=== PATIENT | female | born 1955 | race Caucasian/White ===

== ENCOUNTER 2017-12-21 06:55 | Day surgery (SDC) | payer BC ==
[~2017-12-21 06:55] MED LIST: Acetaminophen/HYDROcodone 325-5 MG Tab PO PRN; Lactated Ringers 1,000 ML IV SCH; Sodium Chloride 0.9% 10 ML Syringe FLUSH PRN; ceFAZolin 1 GM Vial ONE; ceFAZolin 1 GM in Sodium Chloride 0.9% 50 ML IV SCH
[2017-12-21] MEDS ORDERED: ceFAZolin 1 GM in Sodium Chloride 0.9% 50 ML IV SCH (07:42)
[2017-12-21] MEDS ORDERED: Lactated Ringers 1,000 ML IV SCH (07:45)
[2017-12-21] MEDS ORDERED: Propofol 200 MG/20 ML SDV ONE (09:40)
[2017-12-21] MEDS ORDERED: Morphine 10 MG/ML Syringe IVPUSH ONE (11:15)
[2017-12-21] MEDS ORDERED: Acetaminophen/HYDROcodone 325-10 MG Tab ONE (11:36)
[2017-12-21] MEDS ORDERED: Ketorolac 30 MG/ML SDV IVPUSH ONE (11:51)
--- NOTE | 2017-12-22 08:45 | OR ---
DATE OF OPERATION: 12/21/2017 PREOPERATIVE DIAGNOSIS: Advanced first carpometacarpal arthritis. POSTOPERATIVE DIAGNOSIS: Advanced first carpometacarpal arthritis. PROCEDURE: Right first carpometacarpal interpositional arthroplasty. ANESTHESIA: General. LICENSED PSYCHOLOGIST MANAGER: Jamil Julian RN. SPECIMENS: None. DRAINS: None. ESTIMATED BLOOD LOSS: Minimal. COMPLICATIONS: None apparent. DESCRIPTION OF PROCEDURE: After informed consent was obtained, the patient was brought to the operating room where general anesthetic was administered uneventfully. The right upper extremity was prepped and draped sterilely, a time-out was held, and antibiotics were confirmed. The incision was made over the first CMC joint at the junction of the glabrous and non-glabrous skin. We dissected sharply through the skin with careful scissor dissection through subcutaneous tissues to protect and preserve the superficial radial sensory nerve branches. The capsule overlying the trapezium was opened longitudinally and full-thickness flaps were established. We subperiosteally dissected around the trapezium, until we were able to expose it sufficiently to be able to perform a cruciate osteotomy. It was then removed piecemeal. We made a short transverse incision at the junction of the musculotendinous junction of the flexor carpi radialis, we then delivered it into the arthroplasty space. We used a 3-0 nylon to create an arthroplasty spacer balling the FCR. This was then placed into the arthroplasty space. We closed the capsule with 2-0 Vicryl over the top of this. We closed the skin with 4-0 nylon. Xeroform sterile dressings were applied as well as thumb spica splint. The patient was brought to the recovery room in stable condition, having tolerated the procedure well, with no apparent complications.. GERTRUDIS/SONIA /[id number]
== END 2017-12-21 14:05 | disposition home or self-care (01) ==
LOC: LB.SDS 06:55
PROVIDERS: ATTEND Orthopaedic Surgery
DX: M18.11 Unilateral primary osteoarthritis of first carpometacarpal joint, right hand (principal); M81.0 Age-related osteoporosis without current pathological fracture; J45.909 Unspecified asthma, uncomplicated; F32.9 Major depressive disorder, single episode, unspecified; E11.9 Type 2 diabetes mellitus without complications; K21.9 Gastro-esophageal reflux disease without esophagitis; E78.5 Hyperlipidemia, unspecified; I10 Essential (primary) hypertension; G47.00 Insomnia, unspecified; Z91.048 Other nonmedicinal substance allergy status; Z88.0 Allergy status to penicillin; Z79.899 Other long term (current) drug therapy; Z87.891 Personal history of nicotine dependence
CPT/HCPCS: 96374; J0690; J1885; J2270; J2704; J7050; J7120

== ENCOUNTER 2018-09-16 10:28 | Day surgery (SDC) | payer BC ==
[2018-09-16] MEDS: Sodium Chloride 0.9% 1,000 ML IV SCH (11:09)
[2018-09-16] MEDS ORDERED: Lidocaine 2% Viscous Solution 15 ML Cup ONE (12:15)
[2018-09-16] MEDS ORDERED: Propofol 1,000 MG/100 ML SDV ONE (12:15)
--- NOTE | 2018-09-16 19:34 | OR ---
DATE OF OPERATION: 09/16/2018 PREOPERATIVE DIAGNOSIS: Dysphagia. POSTOPERATIVE DIAGNOSIS: Dysphagia. PROCEDURE: Esophagogastroduodenoscopy with biopsy. ANESTHESIA: MAC. ESTIMATED BLOOD LOSS: Minimal. COMPLICATIONS: None. INDICATION FOR THE PROCEDURE: The patient is a 63-year-old female who for the past several years has had some difficulty with swallowing. She does feel like solids potentially and sometimes pills do get stuck in her chest. Does not have any trouble with liquids. She has been on ranitidine. She has not tried anything else. DESCRIPTION OF PROCEDURE: Informed consent was obtained from the patient. The patient was taken to the operating room and placed on table in left lateral decubitus position. Monitored anesthesia care was administered. Esophagogastroduodenoscope was then advanced through the mouth and directed towards the second portion of the duodenum. Duodenum was normal. No signs of duodenitis. No ulcers. Gastric antrum did appear to be normal. No gastritis. No ulcers. Cold forceps biopsy was taken of the gastric antrum and checked that for H. pylori. Retroflexion performed was also otherwise unremarkable. Esophagogastroduodenoscope was then withdrawn into the esophagus. Very minimal esophagitis possible, otherwise distal esophagus GE junction was normal. Remainder of the esophagus examined on the way out was also otherwise unremarkable. Esophagogastroduodenoscope was then withdrawn. The patient tolerated the procedure well and was brought to recovery room in good condition. FINDINGS: Possible mild esophagitis at the GE junction. RECOMMENDATIONS: We will follow up on H. pylori biopsies, otherwise would recommend starting PPI therapy for the next 2 months and monitoring her progress. If she continues to have signs and symptoms of dysphagia, I would recommend esophagram. BRADY/SONIA /[id number]
== END 2018-09-16 13:14 | disposition home or self-care (01) ==
LOC: LB.SDS 10:28
PROVIDERS: ATTEND Surgery
DX: R13.10 Dysphagia, unspecified (principal); I10 Essential (primary) hypertension; J45.909 Unspecified asthma, uncomplicated; K21.9 Gastro-esophageal reflux disease without esophagitis; Z79.899 Other long term (current) drug therapy
CPT/HCPCS: 88305; 88342; A9270-GY; J2704; J7030

== ENCOUNTER 2020-02-24 10:02 | Observation (INO) | payer MEDICARE, BC ==
--- NOTE | 2020-02-24 10:25 | EDM.PDOC ---
ED HPI GENERAL MEDICAL PROBLEM - General Chief Complaint: Lower Extremity Injury/Pain Stated Complaint: PAIN Time Seen by Provider: 02/24/20 10:15 Source of Information: Reports: Patient History Limitations: Reports: No Limitations - History of Present Illness INITIAL COMMENTS - FREE TEXT/NARRATIVE: pt presents to the ER with right knee pain mostly in the posterior fossa. pt is post R TKA on 13 February and has been doing PT since last week. over the last 3-4 days the pain has worsened with increased cramping in her right calf, this is also TTP. pt states she intermittently experiences dizzyness/lightheadedness with coinciding sweating. the cramping, dizzyness, lightheadedness and sweating increases with activity, improvement with rest. she denies fever, chills, nausea, cough, SOB, chest pain. pt provides family history of several relatives with DVT with sister dying of PE. pt admits to at least one missed dose of warfarin this week. pt was evaluated in the context of the covid 19 pandemic. - Related Data Allergies Allergy/AdvReac Type Severity Reaction Status Date / Time alcohol Allergy Rash Verified 08/16/18 09:16 Penicillins Allergy Hives Verified 08/16/18 09:16 Home Meds: Home Meds Amitriptyline [Elavil] 75 mg PO DAILY 12/13/17 [History] Cyclobenzaprine HCl 10 mg PO TID 12/13/17 [History] Fluticasone Propion/Salmeterol [Advair 250-50 Diskus] 2 inh INH BID 12/13/17 [History] Furosemide 40 mg PO ACDINNER 12/13/17 [History] Hydrocodone/Acetaminophen [Hydrocodon-Acetaminophen 5-325] 1 tab PO Q6HR PRN 12/13/17 [History] Ipratropium [Atrovent HFA] 2 inh INH QID PRN 12/13/17 [History] Ranitidine HCl [Ranitidine] 150 mg PO BID 12/13/17 [History] Simvastatin [Zocor] 20 mg PO DAILY 12/13/17 [History] Past Medical History HEENT History: Reports: Hard of Hearing, Other (See Below) Other HEENT History: wears hearing aid Cardiovascular History: Reports: High Cholesterol, Hypertension, Other (See Below) Other Cardiovascular History: Hyperlipidemia Respiratory History: Reports: Asthma Gastrointestinal History: Reports: GERD Other Gastrointestinal History: hx of esophageal ulcers 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: Musculoskeletal History: Reports: Osteoporosis, Other (See Below) Other Musculoskeletal History: degenerative joint disease Neurological History: Reports: Migraines, TIA Psychiatric History: Reports: Depression Endocrine/Metabolic History: Reports: Diabetes, Type II, Osteoporosis Oncologic (Cancer) History: Reports: Basal Cell Carcinoma, Ovarian - Infectious Disease History Infectious Disease History: Reports: Chicken Pox - Past Surgical History Musculoskeletal Surgical History: Reports: Carpal Tunnel Social & Family History - Family History Family Medical History: Noncontributory HEENT: Reports: Cataract, Sinusitis Cardiac: Reports: Hypertension Respiratory: Reports: PE : Reports: None Musculoskeletal: Reports: Arthritis, Back pain, Chronic, Osteoarthritis, Osteoporosis Neurological: Reports: Migraines Endocrine/Metabolic: Reports: Diabetes, type II Hematologic: Reports: None Immunologic: Reports: None Oncologic: Reports: Breast, Ovarian, Uterine, Other (See Below) Other Oncologic Family History: fallopian - Caffeine Use Caffeine Use: Reports: Coffee ED ROS GENERAL - Review of Systems Review Of Systems: Comprehensive ROS is negative, except as noted in HPI. ED EXAM, GENERAL - Physical Exam Exam: See Below Exam Limited By: No Limitations General Appearance: Alert, WD/WN, No Apparent Distress Eye Exam: Bilateral Eye: EOMI, PERRL Head: Atraumatic, Normocephalic Neck: Normal Inspection Respiratory/Chest: No Respiratory Distress, Lungs Clear, Normal Breath Sounds, No Accessory Muscle Use Cardiovascular: Normal Peripheral Pulses, Regular Rate, Rhythm, No JVD, No Murmur Peripheral Pulses: 2+: Radial (L), Radial (R), Dorsalis Pedis (L), Dorsalis Pedis (R) GI/Abdominal: Normal Bowel Sounds, Soft, Non-Tender Extremities: Other (R calf and posterior fossa of the knee are TTP on midline. bedside US shows compressible veins throughout fossa and lower leg structures.) Neurological: Alert, Oriented, CN II-XII Intact, Normal Cognition Psychiatric: Normal Affect, Normal Mood Skin Exam: Warm, Dry, Intact Lymphatic: No Adenopathy Course - Orders/Labs/Meds Orders: Active Orders 24 hr Category Date Time Status Chest 1V Frontal [CR] Stat Exams 02/24/20 10:09 Ordered CBC WITH AUTO DIFF [HEME] Stat Lab 02/24/20 10:09 Ordered COMPREHENSIVE METABOLIC PN,CMP [CHEM] Stat Lab 02/24/20 10:09 Ordered D-DIMER QUANTITATIVE [COAG] Stat Lab 02/24/20 10:09 Ordered PTT,PARTIAL THROMBOPLSTIN TIME [COAG] Stat Lab 02/24/20 10:10 Ordered - Radiology Interpretation Free Text/Narrative:: cxr shows no widened mediastinum, pneumothoracies, consolodation or infiltrates. no bony abnormalities. Departure - Departure Time of Disposition: 13:00 Disposition: Refer to Observation Condition: Fair Clinical Impression: DVT (deep venous thrombosis) - Discharge Information *PRESCRIPTION DRUG MONITORING PROGRAM REVIEWED*: Not Applicable *COPY OF PRESCRIPTION DRUG MONITORING REPORT IN PATIENT MARJORIE: Not Applicable Referrals: PCP,None [Primary Care Provider] - Forms: ED Department Discharge - Problem List & Annotations (1) DVT (deep venous thrombosis) SNOMED Code(s): 834090555 Code(s): I82.409 - ACUTE EMBOLISM AND THOMBOS UNSP DEEP VN UNSP LOWER EXTREMITY Status: Acute Current Visit: Yes - Problem List Review Problem List Initiated/Reviewed/Updated: Yes - My Orders Last 24 Hours: My Active Orders 02/24/20 10:09 Chest 1V Frontal [CR] Stat CBC WITH AUTO DIFF [HEME] Stat COMPREHENSIVE METABOLIC PN,CMP [CHEM] Stat D-DIMER QUANTITATIVE [COAG] Stat 02/24/20 10:10 PTT,PARTIAL THROMBOPLSTIN TIME [COAG] Stat - Assessment/Plan Last 24 Hours: My Active Orders 02/24/20 10:09 Chest 1V Frontal [CR] Stat CBC WITH AUTO DIFF [HEME] Stat COMPREHENSIVE METABOLIC PN,CMP [CHEM] Stat D-DIMER QUANTITATIVE [COAG] Stat 02/24/20 10:10 PTT,PARTIAL THROMBOPLSTIN TIME [COAG] Stat Assessment:: assessment: DVT plan: current INR of 1.1 after one week of coumadin continue coumadin and initiate heparin during observation stay for care and prevention of further DVT although not identified on bedside US, pt with likely DVT by clinical exam and Ddimer with TTP to calf and posterior fossa of right knee. will admit observation through Dr. Jessica of [facility].
[2020-02-24] MEDS: fentaNYL 100 MCG/2 ML SDV IVPUSH PRN ×2 (11:07→12:27)
[2020-02-24] MEDS ORDERED: fentaNYL 100 MCG/2 ML SDV IVPUSH PRN (12:16)
--- NOTE | 2020-02-24 14:12 | CR ---
DATE OF SERVICE: 02/24/20 CLINICAL DATA: Syncopal episode. AP CHEST: Comparison is made to a prior exam dated 05/29/14. The heart size is normal. There is calcification of the aortic arch. The lungs are clear. No pneumothorax. No pleural effusions. No evidence of acute intrathoracic disease. [id number] [facility]
--- NOTE | 2020-02-24 14:17 | CT ---
DATE OF SERVICE: 02/24/20 CLINICAL DATA: Elevated D-dimer. ENHANCED CHEST CT: Multislice axial acquisition with IV contrast was performed. No priors. No evidence of PE. No pneumothorax. No pleural effusions. No aortic aneurysm or dissection. There are minimal atelectatic changes in the dependent portion of both lungs. There are emphysematous changes throughout both lungs. There is a 7 mm pleural- based nodule in the right lower lobe posteromedially. The lung bases are otherwise clear. The heart size is normal. No pericardial effusion. No hilar or mediastinal adenopathy. There are multiple small calcified gallstones noted in the dependent gallbladder. No pericholecystic fluid. No other significant findings. IMPRESSION: 1. No acute abnormalities. 2. Cholelithiasis. No evidence of cholecystitis. 3. 7 mm pleural-based nodule right lower lobe. 3-[address] is recommended. [id number] MTDD
[2020-02-24] MEDS ORDERED: Ondansetron 4 MG/2 ML SDV IV PRN (14:21)
[2020-02-24] MEDS ORDERED: Polyethylene Glycol 3350 Powder 17 GM Packet PO PRN (14:21)
[2020-02-24] MEDS ORDERED: Acetaminophen 325 MG Tab PO PRN (14:21)
[2020-02-24] MEDS ORDERED: HYDROmorphone 4 MG/ML Syringe IVPUSH PRN (14:27)
--- NOTE | 2020-02-24 14:34 | PCM.HP.2 ---
H&P History of Present Illness - General Date of Service: 02/24/20 Admit Problem/Dx: Admission Diagnosis/Problem Admission Diagnosis/Problem DVT, Deep venous thrombosis Source of Information: Patient, Old Records, Provider, RN, RN Notes Reviewed History Limitations: Reports: No Limitations - History of Present Illness Initial Comments - Free Text/Narative: 64 yo woman s/p R TKA 10 days ago presented to ED with c/o severe knee pain. Pt ran out of her po toradol 3 days ago. Also had been prescribed Oxy-IR but had not been taking it due to severe upset stomach. Hydrocodone has worked in the past. Pain became so severe that she sought medical attention in the ED. Pt. denies redness or warmth to knee. It is somewhat swollen but not worse than usual. Has been prescribed coumadin for post op DVT ppx. Reportedly missed one dose but INR is 1.1 in spite of this. Pt does not recall length of time coumadin was prescribed. Notes FH of DVT/PE and sudden . Pt. had CT angio in ED that was negative for PE. US/ Doppler did not show any obvious clots but US for doppler only available once per week. Pt admitted for further eval and management. Onset of Symptoms: Reports: Gradual Symptom Onset Date: 02/21/20 Duration of Symptoms: Reports: Day(s):, Getting Worse Location: Reports: Lower Extremity, Right Quality: Reports: Sharp, Throbbing Severity: Severe Improves with: Reports: Immobilization, Medication Worsens with: Reports: Movement Context: Reports: Activity/Exercise, Exertion. Denies: Sick Contact Associated Symptoms: Reports: No Other Symptoms - Related Data Allergies/Adverse Reactions: Allergies Allergy/AdvReac Type Severity Reaction Status Date / Time alcohol Allergy Rash Verified 02/24/20 14:28 Penicillins Allergy Hives Verified 02/24/20 14:28 Home Medications: Home Meds Amitriptyline [Elavil] 75 mg PO DAILY 12/13/17 [History] Cyclobenzaprine HCl 10 mg PO TID 12/13/17 [History] Fluticasone Propion/Salmeterol [Advair 250-50 Diskus] 2 inh INH BID 12/13/17 [History] Furosemide 40 mg PO ACDINNER 12/13/17 [History] Hydrocodone/Acetaminophen [Hydrocodon-Acetaminophen 5-325] 1 tab PO Q6HR PRN 12/13/17 [History] Ipratropium [Atrovent HFA] 2 inh INH QID PRN 12/13/17 [History] Ranitidine HCl [Ranitidine] 150 mg PO BID 12/13/17 [History] Simvastatin [Zocor] 20 mg PO DAILY 12/13/17 [History] Past Medical History HEENT History: Reports: Hard of Hearing, Other (See Below) Other HEENT History: wears hearing aid Cardiovascular History: Reports: High Cholesterol, Hypertension, Other (See Below) Other Cardiovascular History: Hyperlipidemia Respiratory History: Reports: Asthma Gastrointestinal History: Reports: GERD Other Gastrointestinal History: hx of esophageal ulcers 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: Musculoskeletal History: Reports: Osteoporosis, Other (See Below) Other Musculoskeletal History: degenerative joint disease Neurological History: Reports: Migraines, TIA Psychiatric History: Reports: Depression Endocrine/Metabolic History: Reports: Diabetes, Type II, Osteoporosis Oncologic (Cancer) History: Reports: Basal Cell Carcinoma, Ovarian - Infectious Disease History Infectious Disease History: Reports: Chicken Pox - Past Surgical History Musculoskeletal Surgical History: Reports: Carpal Tunnel Social & Family History - Family History Family Medical History: Noncontributory HEENT: Reports: Cataract, Sinusitis Cardiac: Reports: Hypertension Respiratory: Reports: PE : Reports: None Musculoskeletal: Reports: Arthritis, Back pain, Chronic, Osteoarthritis, Osteoporosis Neurological: Reports: Migraines Endocrine/Metabolic: Reports: Diabetes, type II Hematologic: Reports: None Immunologic: Reports: None Oncologic: Reports: Breast, Ovarian, Uterine, Other (See Below) Other Oncologic Family History: fallopian - Tobacco Use Smoking Status *Q: Former Smoker Tobacco Use Within Last Twelve Months: Cigarettes - Caffeine Use Caffeine Use: Reports: Coffee - Alcohol Use Alcohol Use History: No - Living Situation & Occupation Living situation: Reports: , with Spouse H&P Review of Systems - Review of Systems: Review Of Systems: See Below General: Reports: No Symptoms HEENT: Reports: No Symptoms Pulmonary: Reports: No Symptoms. Denies: Shortness of Breath, Wheezing Cardiovascular: Reports: No Symptoms. Denies: Chest Pain, Palpitations, Dyspnea on Exertion Gastrointestinal: Reports: Diarrhea. Denies: Black Stool, Bloody Stool Psychiatric: Reports: No Symptoms Neurological: Reports: No Symptoms Hematologic/Lymphatic: Reports: No Symptoms Immunologic: Reports: No Symptoms Exam - Exam Exam: See Below - Vital Signs Vital Signs: See EMR - Exam General: Alert, Oriented, Cooperative HEENT: EOMI, Hearing Intact, Nares Patent, Posterior Pharynx Clear Neck: Trachea Midline Lungs: Clear to Auscultation, Normal Respiratory Effort. No: Rhonchi, Stridor, Wheezing Cardiovascular: Regular Rate, Regular Rhythm, Normal S1, Normal S2 Extremities: Other (trace edema bilaterally, intact dressing, no erythema over knee noted.) Neurological: Cranial Nerves Intact, Normal Speech, Normal Tone - Patient Data Lab Results Last 24 hrs: Laboratory Results - last 24 hr 02/24/20 02/24/20 02/24/20 Range/Units 10:30 10:30 10:30 WBC 7.5 (4.0-11.0) K/uL RBC 3.82 (3.80-5.80) M/uL Hgb 10.9 L (11.5-16.5) g/dL Hct 33.9 L (37.0-47.0) % MCV 89 (76-96) fL MCH 28.5 (27.0-32.0) pg MCHC 32.2 (31.0-35.0) g/dL RDW 14.1 (11.0-16.0) % Plt Count 474 D (150-500) K/uL MPV 9.0 (6.0-10.0) fL Neut % (Auto) 53.5 (45.0-70.0) % Lymph % (Auto) 26.0 (20.0-40.0) % Trigg % (Auto) 10.7 H (3.0-10.0) % Eos % (Auto) 9.1 H (1.0-5.0) % Baso % (Auto) 0.7 H (0.0-0.5) % Neut # (Auto) 3.99 (2.00-7.50) K/uL Lymph # (Auto) 1.94 (1.50-4.00) K/uL Trigg # (Auto) 0.80 (0.20-0.80) K/uL Eos # (Auto) 0.68 H (0.04-0.40) K/uL Baso # (Auto) 0.05 (0.02-0.10) K/uL APTT (24.4-33.2) SECONDS D-Dimer, Quantitative 4400 H (0-400) ng/mL Sodium 136 (136-145) mmol/L Potassium 3.8 (3.5-5.1) mmol/L Chloride 100 (98-107) mmol/L Carbon Dioxide 29.3 (21.0-32.0) mmol/L Anion Gap 10.5 (5.0-15.0) mmol/L BUN 19 D (8-26) mg/dL Creatinine 1.03 H D (0.55-1.02) mg/dL Est Cr Clr Drug Dosing TNP Estimated GFR (MDRD) 54 L (>60) MLS/MIN BUN/Creatinine Ratio 18.4 (6-25) Glucose 107 H (74-100) mg/dL Calcium 9.4 (8.5-10.1) mg/dL Total Bilirubin 0.4 D (0.0-1.0) mg/dL AST 23 (15-37) U/L ALT 28 (12-78) U/L Alkaline Phosphatase 79 (46-116) U/L Troponin I (0.000-0.060) ng/mL Total Protein 7.4 (6.4-8.2) g/dL Albumin 3.0 L (3.4-5.0) g/dL Globulin 4.4 H (2.2-4.2) g/dL Albumin/Globulin Ratio 0.7 L (0.8-2.0) 02/24/20 02/24/20 Range/Units 10:30 10:30 WBC (4.0-11.0) K/uL RBC (3.80-5.80) M/uL Hgb (11.5-16.5) g/dL Hct (37.0-47.0) % MCV (76-96) fL MCH (27.0-32.0) pg MCHC (31.0-35.0) g/dL RDW (11.0-16.0) % Plt Count (150-500) K/uL MPV (6.0-10.0) fL Neut % (Auto) (45.0-70.0) % Lymph % (Auto) (20.0-40.0) % Trigg % (Auto) (3.0-10.0) % Eos % (Auto) (1.0-5.0) % Baso % (Auto) (0.0-0.5) % Neut # (Auto) (2.00-7.50) K/uL Lymph # (Auto) (1.50-4.00) K/uL Trigg # (Auto) (0.20-0.80) K/uL Eos # (Auto) (0.04-0.40) K/uL Baso # (Auto) (0.02-0.10) K/uL APTT 29.9 (24.4-33.2) SECONDS D-Dimer, Quantitative (0-400) ng/mL Sodium (136-145) mmol/L Potassium (3.5-5.1) mmol/L Chloride (98-107) mmol/L Carbon Dioxide (21.0-32.0) mmol/L Anion Gap (5.0-15.0) mmol/L BUN (8-26) mg/dL Creatinine (0.55-1.02) mg/dL Est Cr Clr Drug Dosing Estimated GFR (MDRD) (>60) MLS/MIN BUN/Creatinine Ratio (6-25) Glucose (74-100) mg/dL Calcium (8.5-10.1) mg/dL Total Bilirubin (0.0-1.0) mg/dL AST (15-37) U/L ALT (12-78) U/L Alkaline Phosphatase (46-116) U/L Troponin I < 0.017 (0.000-0.060) ng/mL Total Protein (6.4-8.2) g/dL Albumin (3.4-5.0) g/dL Globulin (2.2-4.2) g/dL Albumin/Globulin Ratio (0.8-2.0) Result Diagrams: 02/24/20 10:30 02/24/20 10:30 Sepsis Event Note - Focused Exam Date Exam was Performed: 02/24/20 Time Exam was Performed: 14:29 - Problem List (1) S/P total knee arthroplasty SNOMED Code(s): 6699306149090, 647827747, 4502881621412 ICD Code: Z96.659 - PRESENCE OF UNSPECIFIED ARTIFICIAL KNEE JOINT Status: Acute Current Visit: Yes Qualifiers: Laterality: right Qualified Code(s): Z96.651 - Presence of right artificial knee joint (2) Pain SNOMED Code(s): 37093098 ICD Code: R52 - PAIN, UNSPECIFIED Status: Acute Priority: High Current Visit: Yes (3) Family history of DVT SNOMED Code(s): 053616087 ICD Code: Z82.49 - FAMILY HX OF ISCHEM HEART DIS AND OTH DIS OF THE CIRC SYS Status: Acute Priority: Medium Current Visit: Yes (4) Subtherapeutic international normalized ratio (INR) SNOMED Code(s): 094606301, 919588013 ICD Code: R79.1 - ABNORMAL COAGULATION PROFILE Status: Acute Priority: High Current Visit: Yes Problem List Initiated/Reviewed/Updated: Yes Orders Last 24hrs: Active Orders 24 hr Category Date Time Status Patient Status [ADT] Routine ADT 02/24/20 14:14 Active Ambulate [RC] ASDIRECTED Care 02/24/20 14:21 Active Anticoag Warfarin Education *Q [RC] DAILY Care 02/24/20 14:21 Active Blood Glucose Check, Bedside [RC] [facility] 02/24/20 14:21 Active Communication Order [RC] PER UNIT ROUTINE Care 02/24/20 14:21 Active Diabetes Education [RC] Click to Edit Care 02/24/20 14:25 Active Height and Weight [RC] DAILY Care 02/24/20 14:21 Active Intake and Output [RC] QSHIFT Care 02/24/20 14:22 Active May Shower [RC] ASDIRECTED Care 02/24/20 14:21 Active Notify Provider [RC] PRN Care 02/24/20 14:24 Active Oxygen Therapy [RC] PRN Care 02/24/20 14:14 Active Oxygen Therapy [RC] PRN Care 02/24/20 14:22 Active Oxygen Therapy [RC] PRN Care 02/24/20 14:22 Active Up ad Zarina [RC] ASDIRECTED Care 02/24/20 14:21 Active VTE/DVT Education [RC] PER UNIT ROUTINE Care 02/24/20 14:22 Active VTE/DVT Education [RC] Per Unit Routine Care 02/24/20 14:14 Active VTE/DVT Education [RC] Per Unit Routine Care 02/24/20 14:22 Active Vital Signs [RC] Q4H Care 02/24/20 14:14 Active Vital Signs [RC] Q4H Care 02/24/20 14:22 Active Consult to Case Management/Streetcar Operator [CONS] Cons 02/24/20 14:21 Active Routine OT Evaluation and Treatment [CONS] Routine Cons 02/24/20 14:21 Active PT Evaluation and Treatment [CONS] Routine Cons 02/24/20 14:21 Active Consistent Carbohydrate Diet [DIET] Diet 02/24/20 Dinner Ordered BASIC METABOLIC PANEL,BMP [CHEM] AM Lab 02/25/20 05:11 Ordered CBC WITH AUTO DIFF [HEME] AM Lab 02/25/20 05:11 Ordered INR,PT,PROTHROMBIN TIME [COAG] DAILY Lab 02/24/20 14:30 Ordered Acetaminophen [Tylenol] Med 02/24/20 14:21 Ordered 650 mg PO Q4H PRN Acetaminophen/HYDROcodone [[place] 325-5 MG] Med 02/24/20 14:21 Ordered 2 tab PO Q4H PRN Docusate Sodium/Sennosides [Senna Plus] Med 02/24/20 14:21 Ordered 1 tab PO BID PRN HYDROmorphone [Dilaudid] Med 02/24/20 14:27 Ordered 0.4 mg IVPUSH Q2H PRN Ondansetron [Zofran] Med 02/24/20 14:21 Ordered 4 mg IV Q6H PRN Warfarin [Coumadin] Med 02/24/20 18:00 Ordered 5 mg PO DAILY@1800 fentaNYL [Sublimaze] Med 02/24/20 11:03 Active 50 mcg IVPUSH Q5M PRN fentaNYL [Sublimaze] Med 02/24/20 12:16 Active 50 mcg IVPUSH Q5M PRN polyethylene glycoL 3350 [MiraLAX] Med 02/24/20 14:21 Ordered 17 gm PO DAILY PRN Glucose Management Sub Q Reflex [OM.PC] Click to Edit Oth 02/24/20 14:21 Ordered Resuscitation Status Routine Resus Stat 02/24/20 14:14 Ordered Medication Orders Acetaminophen (Tylenol) 650 mg PO Q4H PRN PRN Reason: Pain (Mild 1-3)/fever Hydrocodone Bitart/Acetaminophen ([place] 325-5 Mg) 2 tab PO Q4H PRN PRN Reason: Pain (moderate 4-6) Fentanyl (Sublimaze) 50 mcg IVPUSH Q5M PRN PRN Reason: Pain Stop: 02/24/20 23:59 Fentanyl (Sublimaze) 50 mcg IVPUSH Q5M PRN PRN Reason: Pain Ondansetron HCl (Zofran) 4 mg IV Q6H PRN PRN Reason: Nausea/Vomiting Polyethylene Glycol (Miralax) 17 gm PO DAILY PRN PRN Reason: Constipation Senna/Docusate Sodium (Senna Plus) 1 tab PO BID PRN PRN Reason: Constipation Warfarin Sodium (Coumadin) 5 mg PO DAILY@1800 [facility] Assessment/Plan Comment:: 1. R TKA with FH of PE/DVT and subtherapeutic INR * Suspect today's event was due to pain and running out of medications * Restart Hydrocodone as patient has safely taken this in the past. * Add prn dilaudid IV for severe pain as this is less likely to cause nausea * Continue Coumadin at 5 mg daily * Add Lovenox for bridging. * Daily INR * Pt will need bridging until INR >2.0 * Monitor hemoglobin * Continue PT/OT * Ambulate ad zarina 2. Chronic Medical Issues--continue home medications. * DM * Migraines * Hyperlipidemia Discharge/Disposition: Likely to home with services. CODE Status: FULL CODE DVT Ppx: Full Dose anticoagulation
[2020-02-24] MEDS: Enoxaparin 100 MG/1 ML Syringe SUBCUT SCH (15:00)
[2020-02-24] MEDS: Acetaminophen/HYDROcodone 325-5 MG Tab PO PRN (15:35)
[2020-02-24] MEDS ORDERED: HYDROmorphone 2 MG/ML SDV IVPUSH PRN (15:54)
[2020-02-24] MEDS: Warfarin 5 MG Tab PO SCH (18:03)
[2020-02-25] MEDS: Enoxaparin 100 MG/1 ML Syringe SUBCUT SCH (08:09)
[2020-02-25] MEDS: Acetaminophen/HYDROcodone 325-5 MG Tab PO PRN ×2 (14:06→18:05)
--- NOTE | 2020-02-25 14:07 | PCM.PN ---
- General Info Date of Service: 02/25/20 Admission Dx/Problem (Free Text): Admission Diagnosis/Problem Admission Diagnosis/Problem DVT, Deep venous thrombosis Subjective Update: pt states she is overall better, pain is better controlled compared to last few days. pain with ambulation has improved. pt continues to deny SOB, chest pain although the intermittent cold sweats are problematic for her. no nausea or appetite loss. Functional Status: Reports: Pain Controlled, Ambulating, Incentive Spirometry - Review of Systems General: Reports: No Symptoms HEENT: Reports: No Symptoms Pulmonary: Reports: No Symptoms Cardiovascular: Reports: No Symptoms Gastrointestinal: Reports: No Symptoms Genitourinary: Reports: No Symptoms Musculoskeletal: Reports: Leg Pain, Foot Pain (heel) Skin: Reports: No Symptoms Neurological: Reports: No Symptoms - Patient Data Vitals - Most Recent: Last Vital Signs Temp 97.1 F 02/25/20 08:00 Pulse 78 02/25/20 08:00 Resp 18 02/25/20 08:00 BP 143/74 H 02/25/20 08:00 Pulse Ox 91 L 02/25/20 08:00 Weight - Most Recent: 168 lb Lab Results Last 24 Hours: Laboratory Results - last 24 hr 02/24/20 02/25/20 02/25/20 Range/Units 20:16 07:45 07:45 WBC 5.6 D (4.0-11.0) K/uL RBC 3.79 L (3.80-5.80) M/uL Hgb 10.8 L (11.5-16.5) g/dL Hct 34.2 L (37.0-47.0) % MCV 90 (76-96) fL MCH 28.5 (27.0-32.0) pg MCHC 31.6 (31.0-35.0) g/dL RDW 14.1 (11.0-16.0) % Plt Count 448 (150-500) K/uL MPV 9.2 (6.0-10.0) fL Neut % (Auto) 52.0 (45.0-70.0) % Lymph % (Auto) 25.9 (20.0-40.0) % [place] % (Auto) 9.8 (3.0-10.0) % Eos % (Auto) 11.6 H (1.0-5.0) % Baso % (Auto) 0.7 H (0.0-0.5) % Neut # (Auto) 2.90 (2.00-7.50) K/uL Lymph # (Auto) 1.45 L (1.50-4.00) K/uL [place]igo # (Auto) 0.55 (0.20-0.80) K/uL Eos # (Auto) 0.65 H (0.04-0.40) K/uL Baso # (Auto) 0.04 (0.02-0.10) K/uL PT (9.0-11.5) sec INR (1.0-3.5) Sodium 136 (136-145) mmol/L Potassium 3.9 (3.5-5.1) mmol/L Chloride 102 (98-107) mmol/L Carbon Dioxide 29.7 (21.0-32.0) mmol/L Anion Gap 8.2 (5.0-15.0) mmol/L BUN 14 D (8-26) mg/dL Creatinine 0.75 D (0.55-1.02) mg/dL Est Cr Clr Drug Dosing 55.68 mL/min Estimated GFR (MDRD) > 60 (>60) MLS/MIN BUN/Creatinine Ratio 18.7 (6-25) Glucose 112 H (74-100) mg/dL POC Glucose 109 (74-110) mg/dL Calcium 9.1 (8.5-10.1) mg/dL 02/25/20 02/25/20 Range/Units 07:45 11:24 WBC (4.0-11.0) K/uL RBC (3.80-5.80) M/uL Hgb (11.5-16.5) g/dL Hct (37.0-47.0) % MCV (76-96) fL MCH (27.0-32.0) pg MCHC (31.0-35.0) g/dL RDW (11.0-16.0) % Plt Count (150-500) K/uL MPV (6.0-10.0) fL Neut % (Auto) (45.0-70.0) % Lymph % (Auto) (20.0-40.0) % [place] % (Auto) (3.0-10.0) % Eos % (Auto) (1.0-5.0) % Baso % (Auto) (0.0-0.5) % Neut # (Auto) (2.00-7.50) K/uL Lymph # (Auto) (1.50-4.00) K/uL [place]igo # (Auto) (0.20-0.80) K/uL Eos # (Auto) (0.04-0.40) K/uL Baso # (Auto) (0.02-0.10) K/uL PT 11.6 H (9.0-11.5) sec INR 1.1 (1.0-3.5) Sodium (136-145) mmol/L Potassium (3.5-5.1) mmol/L Chloride (98-107) mmol/L Carbon Dioxide (21.0-32.0) mmol/L Anion Gap (5.0-15.0) mmol/L BUN (8-26) mg/dL Creatinine (0.55-1.02) mg/dL Est Cr Clr Drug Dosing mL/min Estimated GFR (MDRD) (>60) MLS/MIN BUN/Creatinine Ratio (6-25) Glucose (74-100) mg/dL POC Glucose 97 (74-110) mg/dL Calcium (8.5-10.1) mg/dL Vin Results Last 24 Hours: Microbiology 02/24/20 15:14 MRSA Surveillance Culture - Final Nasal, Unspecified NO MRSA ISOLATED Med Orders - Current: Current Medications Acetaminophen (Tylenol) 650 mg PO Q4H PRN PRN Reason: Pain (Mild 1-3)/fever Hydrocodone Bitart/Acetaminophen ([place] 325-5 Mg) 2 tab PO Q4H PRN PRN Reason: Pain (moderate 4-6) Last Admin: 02/24/20 15:35 Dose: 2 tab Documented by: Enoxaparin Sodium (Lovenox) 100 mg SUBCUT DAILY [facility] Last Admin: 02/25/20 08:09 Dose: 100 mg Documented by: Fentanyl (Sublimaze) 50 mcg IVPUSH Q5M PRN PRN Reason: Pain Last Admin: 02/24/20 12:17 Dose: 50 mcg Documented by: Hydromorphone HCl (Dilaudid) 0.4 mg IVPUSH Q2H PRN PRN Reason: PAIN Ondansetron HCl (Zofran) 4 mg IV Q6H PRN PRN Reason: Nausea/Vomiting Polyethylene Glycol (Miralax) 17 gm PO DAILY PRN PRN Reason: Constipation Senna/Docusate Sodium (Senna Plus) 1 tab PO BID PRN PRN Reason: Constipation Warfarin Sodium (Coumadin) 5 mg PO DAILY@1800 [facility] Last Admin: 02/24/20 18:03 Dose: 5 mg Documented by: Discontinued Medications Fentanyl (Sublimaze) 50 mcg IVPUSH Q5M PRN PRN Reason: Pain Stop: 02/24/20 23:59 Last Admin: 02/24/20 12:27 Dose: 50 mcg Documented by: - Exam Quality Assessment: DVT Prophylaxis General: Alert, Oriented HEENT: Pupils Equal, Pupils Reactive, EOMI Lungs: Clear to Auscultation, Normal Respiratory Effort Cardiovascular: Regular Rate, Regular Rhythm, No Murmurs Extremities: Normal Inspection, Normal Range of Motion, No Pedal Edema, Normal Capillary Refill Peripheral Pulses: 2+: Radial (L), Radial (R), Posterior Tibial (L), Posterior Tibial (R), Dorsalis Pedis (L), Dorsalis Pedis (R) Skin: Warm, Dry, Intact Neurological: No New Focal Deficit Psy/Mental Status: Alert, Normal Affect, Normal Mood Sepsis Event Note - Evaluation Sepsis Screening Result: No Definite Risk - Focused Exam Vital Signs: Vital Signs Temp Temp Pulse Resp BP Pulse Ox 02/25/20 08:00 97.1 F 78 18 143/74 H 91 L 02/25/20 03:55 96.7 F L 88 18 153/73 H 92 L Date Exam was Performed: 02/25/20 Time Exam was Performed: 13:59 - Problem List & Annotations (1) S/P total knee arthroplasty SNOMED Code(s): 9844423457394, 057077185, 5072966287321 Code(s): Z96.659 - PRESENCE OF UNSPECIFIED ARTIFICIAL KNEE JOINT Status: Acute Current Visit: Yes Qualifiers: Laterality: right Qualified Code(s): Z96.651 - Presence of right artificial knee joint - Problem List Review Problem List Initiated/Reviewed/Updated: Yes - My Orders Last 24 Hours: My Active Orders 02/24/20 14:14 Patient Status [ADT] Routine Oxygen Therapy [RC] PRN VTE/DVT Education [RC] Per Unit Routine Vital Signs [RC] Q4H Resuscitation Status Routine 02/24/20 15:54 HYDROmorphone [Dilaudid] 0.4 mg IVPUSH Q2H PRN - Plan Plan:: 1. R TKA with FH of PE/DVT and subtherapeutic INR * continue Hydrocodone * Continue Coumadin at 5 mg daily * continue Lovenox for bridging. pt will self administer next dose to show discharge readiness * Daily INR * Pt will need bridging until INR >2.0 * Monitor hemoglobin * resume PT/OT at discharge * Ambulate ad michael 2. Chronic Medical Issues--continue home medications. * DM * Migraines * Hyperlipidemia Discharge/Disposition: home tomorrow CODE Status: FULL CODE DVT Ppx: Full Dose anticoagulation
[2020-02-25] MEDS: Warfarin 5 MG Tab PO SCH (18:06)
[2020-02-26] MEDS: Enoxaparin 100 MG/1 ML Syringe SUBCUT SCH (08:11)
[2020-02-26] MEDS: Acetaminophen/HYDROcodone 325-5 MG Tab PO PRN (09:09)
--- NOTE | 2020-02-26 13:26 | PCM.DCSUM1 ---
Discharge Summary - Hospital Course Free Text/Narrative:: Patient evaluated initially in the emergency department for lower right leg/right calf pain and an elevated d-dimer, as well as INR not within therapeutic range. Admitted observation to initiate bridge therapy with Lovenox for the next 7 days while INR becomes therapeutic on warfarin. Patient's pain was controlled with oral pain medications while inpatient. No physical therapy in house during this weekend but patient will resume Thursday. Current plan to discharge home today after lunch. Patient states she is motivated for discharge home. - Discharge Data Discharge Date: 02/26/20 Discharge Disposition: Home, Self-Care 01 Condition: Good - Referral to Home Health Primary Care Physician: PCP None - Discharge Diagnosis/Problem(s) (1) S/P total knee arthroplasty SNOMED Code(s): 6705860073946, 797053401, 6103457619444 ICD Code: Z96.659 - PRESENCE OF UNSPECIFIED ARTIFICIAL KNEE JOINT Status: Acute Current Visit: Yes Qualifiers: Laterality: right Qualified Code(s): Z96.651 - Presence of right artificial knee joint (2) Pain SNOMED Code(s): 24425632 ICD Code: R52 - PAIN, UNSPECIFIED Status: Acute Priority: High Current Visit: Yes (3) Family history of DVT SNOMED Code(s): 246249949 ICD Code: Z82.49 - FAMILY HX OF ISCHEM HEART DIS AND OTH DIS OF THE CIRC SYS Status: Acute Priority: Medium Current Visit: Yes (4) Subtherapeutic international normalized ratio (INR) SNOMED Code(s): 286374541, 799327606 ICD Code: R79.1 - ABNORMAL COAGULATION PROFILE Status: Acute Priority: High Current Visit: Yes - Patient Summary/Data Consults: Consultations 02/24/20 14:21 Consult to Case Management/Senior Account Clerk [CONS] Routine Comment: Physician Instructions: Service(s) to be Consulted: Case Management OT Evaluation and Treatment [CONS] Routine Please Evaluate and Treat. OT Reason for Consult: ADL's This query below is only for informational purposes and is not editable. Admission Diagnosis/Problem: DVT, Deep venous thrombosis PT Evaluation and Treatment [CONS] Routine Please Evaluate and Treat. PT Reason for Consult: Post op Ortho Surgery This query below is only for informational purposes and is not editable. Admission Diagnosis/Problem: DVT, Deep venous thrombosis Hospital Course: Initiation of Lovenox for bridge to therapeutic INR while on warfarin. Prescription provided on discharge for 5 days post discharge. Patient up ad michael. in room as tolerated and throughout hallways intermittently throughout stay with walker. Patient successfully able to provide own Lovenox injections, high likelihood of success with bridge therapy as long she follows up with Coumadin clinic and takes warfarin as prescribed. - Patient Instructions Diet: Heart Healthy Diet Activity: Apply Ice (and heat), As Tolerated Driving: Do Not Drive (do not drive as long as you are taking narcotic pain medication that day.) Showering/Bathing: May Shower Wound/Incision Care: Keep Operative Site/Wound Site Clean and Dry (yesy will be removed on thursday with Eda) Notify Provider of: Fever, Increased Pain, Swelling and Redness, Drainage - Discharge Plan *PRESCRIPTION DRUG MONITORING PROGRAM REVIEWED*: No *COPY OF PRESCRIPTION DRUG MONITORING REPORT IN PATIENT MARJORIE: No Prescriptions/Med Rec: Enoxaparin Sodium [Lovenox] 100 mg SQ DAILY #5 ml Home Medications: Home Meds Amitriptyline [Elavil] 75 mg PO DAILY 12/13/17 [History] Cyclobenzaprine HCl 10 mg PO TID PRN 12/13/17 [History] Fluticasone Propion/Salmeterol [Advair 250-50 Diskus] 2 inh INH BID 12/13/17 [History] Furosemide 40 mg PO ACDINNER PRN 12/13/17 [History] Hydrocodone/Acetaminophen [Hydrocodon-Acetaminophen 5-325] 1 tab PO Q6HR PRN 12/13/17 [History] Ipratropium [Atrovent HFA] 2 inh INH QID PRN 12/13/17 [History] Simvastatin [Zocor] 20 mg PO DAILY 12/13/17 [History] Enoxaparin Sodium [Lovenox] 100 mg SQ DAILY #5 ml 02/26/20 [Rx] Omeprazole 40 mg PO DAILY 02/26/20 [History] metFORMIN [Glucophage] 500 mg PO BID 02/26/20 [History] Oxygen Therapy Mode: Room Air Patient Handouts: Vitamin K Foods and Warfarin, What You Need to Know About Warfarin, Enoxaparin injection, Deep Vein Thrombosis, Venous Thromboembolism Prevention Forms: ED Department Discharge Referrals: PCP,None [Primary Care Provider] - - Discharge Summary/Plan Comment DC Time >30 min.: Yes Discharge Summary/Plan Comment: Discharge home, follow-up with physical therapy starting tomorrow. Repeat INR on Thursday prior to orthopedic follow-up appointment. Continue bridge therapy as patient is high risk for DVT as she was admitted observation with suspected DVT this weekend. - General Info Date of Service: 02/26/20 Admission Dx/Problem (Free Text: Admission Diagnosis/Problem Admission Diagnosis/Problem DVT, Deep venous thrombosis Subjective Update: pt states she is overall better, pain continues to be controlled. pain with ambulation has improved. pt continues to deny SOB, chest pain, nausea or appetite loss. Functional Status: Reports: Pain Controlled, Tolerating Diet, Ambulating, Urinating, Incentive Spirometry - Review of Systems General: Reports: No Symptoms HEENT: Reports: No Symptoms Pulmonary: Reports: No Symptoms Cardiovascular: Reports: No Symptoms Gastrointestinal: Reports: No Symptoms Genitourinary: Reports: No Symptoms Musculoskeletal: Reports: Leg Pain Skin: Reports: No Symptoms Neurological: Reports: No Symptoms - Patient Data Vitals - Most Recent: Last Vital Signs Temp 98 F 02/26/20 08:00 Pulse 78 02/26/20 08:00 Resp 18 02/26/20 08:00 BP 150/77 H 02/26/20 08:00 Pulse Ox 92 L 02/26/20 08:00 Weight - Most Recent: 166 lb 4 oz Lab Results - Last 24 hrs: Laboratory Results - last 24 hr 02/25/20 02/25/20 02/26/20 Range/Units 16:07 20:50 07:15 PT (9.0-11.5) sec INR (1.0-3.5) Sodium 139 (136-145) mmol/L Potassium 4.2 (3.5-5.1) mmol/L Chloride 103 (98-107) mmol/L Carbon Dioxide 32.1 H (21.0-32.0) mmol/L Anion Gap 8.1 (5.0-15.0) mmol/L BUN 16 (8-26) mg/dL Creatinine 0.80 (0.55-1.02) mg/dL Est Cr Clr Drug Dosing 52.20 mL/min Estimated GFR (MDRD) > 60 (>60) MLS/MIN BUN/Creatinine Ratio 20.0 (6-25) Glucose 111 H (74-100) mg/dL POC Glucose 97 94 (74-110) mg/dL Calcium 9.3 (8.5-10.1) mg/dL Total Bilirubin 0.3 (0.0-1.0) mg/dL AST 16 (15-37) U/L ALT 22 (12-78) U/L Alkaline Phosphatase 76 (46-116) U/L Troponin I < 0.017 (0.000-0.060) ng/mL Total Protein 7.2 (6.4-8.2) g/dL Albumin 3.0 L (3.4-5.0) g/dL Globulin 4.2 (2.2-4.2) g/dL Albumin/Globulin Ratio 0.7 L (0.8-2.0) 02/26/20 02/26/20 Range/Units 07:15 12:03 PT 12.2 H (9.0-11.5) sec INR 1.2 (1.0-3.5) Sodium (136-145) mmol/L Potassium (3.5-5.1) mmol/L Chloride (98-107) mmol/L Carbon Dioxide (21.0-32.0) mmol/L Anion Gap (5.0-15.0) mmol/L BUN (8-26) mg/dL Creatinine (0.55-1.02) mg/dL Est Cr Clr Drug Dosing mL/min Estimated GFR (MDRD) (>60) MLS/MIN BUN/Creatinine Ratio (6-25) Glucose (74-100) mg/dL POC Glucose 93 (74-110) mg/dL Calcium (8.5-10.1) mg/dL Total Bilirubin (0.0-1.0) mg/dL AST (15-37) U/L ALT (12-78) U/L Alkaline Phosphatase (46-116) U/L Troponin I (0.000-0.060) ng/mL Total Protein (6.4-8.2) g/dL Albumin (3.4-5.0) g/dL Globulin (2.2-4.2) g/dL Albumin/Globulin Ratio (0.8-2.0) ARIANE Results - Last 24 hrs: Microbiology 02/24/20 15:14 MRSA Surveillance Culture - Final Nasal, Unspecified NO MRSA ISOLATED Med Orders - Current: Current Medications Acetaminophen (Tylenol) 650 mg PO Q4H PRN PRN Reason: Pain (Mild 1-3)/fever Hydrocodone Bitart/Acetaminophen ([place] 325-5 Mg) 2 tab PO Q4H PRN PRN Reason: Pain (moderate 4-6) Last Admin: 02/26/20 09:09 Dose: 2 tab Documented by: Enoxaparin Sodium (Lovenox) 100 mg SUBCUT DAILY [facility] Last Admin: 02/26/20 08:11 Dose: 100 mg Documented by: Fentanyl (Sublimaze) 50 mcg IVPUSH Q5M PRN PRN Reason: Pain Last Admin: 02/24/20 12:17 Dose: 50 mcg Documented by: Hydromorphone HCl (Dilaudid) 0.4 mg IVPUSH Q2H PRN PRN Reason: PAIN Ondansetron HCl (Zofran) 4 mg IV Q6H PRN PRN Reason: Nausea/Vomiting Polyethylene Glycol (Miralax) 17 gm PO DAILY PRN PRN Reason: Constipation Senna/Docusate Sodium (Senna Plus) 1 tab PO BID PRN PRN Reason: Constipation Warfarin Sodium (Coumadin) 5 mg PO DAILY@1800 [facility] Last Admin: 02/25/20 18:06 Dose: 5 mg Documented by: Discontinued Medications Fentanyl (Sublimaze) 50 mcg IVPUSH Q5M PRN PRN Reason: Pain Stop: 02/24/20 23:59 Last Admin: 02/24/20 12:27 Dose: 50 mcg Documented by: - Exam Quality Assessment: Reports: DVT Prophylaxis General: Reports: Alert, Oriented HEENT: Reports: Pupils Equal, Pupils Reactive, EOMI Lungs: Reports: Clear to Auscultation, Normal Respiratory Effort Cardiovascular: Reports: Regular Rate, Regular Rhythm GI/Abdominal Exam: Normal Bowel Sounds, Soft, Non-Tender Back Exam: Reports: Normal Inspection, Full Range of Motion Extremities: Normal Inspection, Normal Range of Motion, Non-Tender Skin: Reports: Warm, Dry, Intact Neurological: Reports: No New Focal Deficit Psy/Mental Status: Reports: Alert, Normal Affect
== END 2020-02-26 13:35 | disposition home or self-care (01) ==
LOC: LB.ED 10:02 → LB.MS 14:14
PROVIDERS: ADMIT Registered Nurse; ATTEND Registered Nurse
DX: M25.561 Pain in right knee (principal); M79.661 Pain in right lower leg; R79.1 Abnormal coagulation profile; E78.00 Pure hypercholesterolemia, unspecified; I10 Essential (primary) hypertension; E78.5 Hyperlipidemia, unspecified; J45.909 Unspecified asthma, uncomplicated; K21.9 Gastro-esophageal reflux disease without esophagitis; F32.9 Major depressive disorder, single episode, unspecified; E11.9 Type 2 diabetes mellitus without complications; G43.909 Migraine, unspecified, not intractable, without status migrainosus; Z79.51 Long term (current) use of inhaled steroids; Z88.0 Allergy status to penicillin; Z91.048 Other nonmedicinal substance allergy status; Z96.651 Presence of right artificial knee joint; Z87.891 Personal history of nicotine dependence; Z82.49 Family history of ischemic heart disease and other diseases of the circulatory system; Z79.899 Other long term (current) drug therapy
CPT/HCPCS: 36415; 71045; 71260; 80048; 80053; 82962; 84484; 85025; 85379; 85610; 85730; 96372; 96374; 96376; 99285; A9270; G0378; J1650; J3010

== ENCOUNTER 2020-10-18 09:40 | Day surgery (SDC) | payer MEDICARE, BC ==
[~2020-10-18 09:40] MED LIST changes: -Acetaminophen/HYDROcodone 325-5 MG Tab PO PRN; -Lactated Ringers 1,000 ML IV SCH; +Metoclopramide 10 MG/2 ML SDV IV PRN; +Sodium Chloride 0.9% 1,000 ML IV SCH; -Sodium Chloride 0.9% 10 ML Syringe FLUSH PRN; -ceFAZolin 1 GM Vial ONE; -ceFAZolin 1 GM in Sodium Chloride 0.9% 50 ML IV SCH
[2020-10-18] MEDS ORDERED: Propofol 1,000 MG/100 ML SDV ONE (14:30)
--- NOTE | 2020-10-18 17:29 | OR ---
DATE OF OPERATION: 10/18/2020 SURGEON: Martin Vazquez MD PREOPERATIVE DIAGNOSES: Abdominal pain and dark stools. POSTOPERATIVE DIAGNOSES: Abdominal pain and dark stools. PROCEDURE: EGD and incomplete colonoscopy. ANESTHESIA: MAC. ESTIMATED BLOOD LOSS: Minimal. COMPLICATIONS: None. INDICATION FOR PROCEDURE: The patient is a 65-year-old female who has had a 6-month history of abdominal pain. She has also had a couple weeks of dark tarry stools, which have now resolved. Does have history of gastric ulcers in the past. Otherwise, she has been doing well. She is here today for EGD and colonoscopy. DESCRIPTION OF PROCEDURE: Informed consent was obtained from the patient. The patient was taken to the operating room and placed on table in left lateral decubitus position. Monitored anesthesia care was administered. Esophagus scope then advanced through the mouth and directed towards the second portion of duodenum. Duodenum was reached and appeared normal. Gastric antrum did have some mild gastritis. Biopsy was taken for H pylori. Retroflexion performed in the stomach, was also otherwise unremarkable. She did have a small hiatal hernia. The esophagus was otherwise normal. Gastroscope then withdrawn. We then proceeded with colonoscopy. Digital rectal exam performed, it was normal. Colonoscope then advanced through the anus and directed towards the sigmoid colon. The sigmoid was reached, however, was tortuous, unable to negotiate a sharp corner. Ped scope was then utilized also unsuccessfully. The patient was repositioned in the supine position which was also otherwise unsuccessful. I terminated the procedure at that point due to a tortuous sigmoid colon. The colonoscope then withdrawn. FINDINGS: Mild gastritis in the stomach and hiatal hernia, otherwise unremarkable and incomplete colonoscopy. RECOMMENDATIONS: We will follow up on H pylori biopsies. Otherwise, would continue her PPI therapy. We will also set the patient up for CT colonography to assess the remainder of the colon. BRADY/SONIA /[id number]
== END 2020-10-18 15:40 | disposition home or self-care (01) ==
LOC: LB.SDS 09:40
PROVIDERS: ATTEND Surgery
DX: K29.70 Gastritis, unspecified, without bleeding (principal); K44.9 Diaphragmatic hernia without obstruction or gangrene; K56.2 Volvulus; K21.9 Gastro-esophageal reflux disease without esophagitis; E11.9 Type 2 diabetes mellitus without complications; J45.909 Unspecified asthma, uncomplicated; Z88.0 Allergy status to penicillin; Z91.09 Other allergy status, other than to drugs and biological substances; Z79.84 Long term (current) use of oral hypoglycemic drugs; Z79.899 Other long term (current) drug therapy; Z87.891 Personal history of nicotine dependence; Z87.11 Personal history of peptic ulcer disease
CPT/HCPCS: 82962; J2704; J7030

== ENCOUNTER 2024-06-24 10:50 | Emergency (ER) | payer MEDICARE, BC ==
[2024-06-24 11:39] LABS: HEMATOCRIT 38.4 % (37.0-47.0); HEMOGLOBIN 12.3 g/dL (11.5-16.5); MEAN CORPUSCULAR HEMOGLOBIN 28.1 pg (27.0-32.0); MEAN PLATELET VOLUME 9.9 fL (6.0-10.0); RED BLOOD CELL COUNT 4.37 M/uL (3.80-5.80); RED CELL DISTRIBUTION WIDTH 15.2 % (11.0-16.0); WHITE BLOOD CELL COUNT,WBC 9.1 K/uL (4.0-11.0)
[2024-06-24 11:53] LABS: APPEARANCE,URINE CLEAR (CLEAR); BILIRUBIN,URINE NEGATIVE (NEGATIVE); COLOR,URINE YELLOW; GLUCOSE,URINE NEGATIVE (NEGATIVE); KETONES,URINE NEGATIVE (NEGATIVE); NITRITE,URINE NEGATIVE (NEGATIVE); OCCULT BLOOD,URINE SMALL (NEGATIVE); PH,URINE 5.5 (5.0-8.0); PROTEIN,URINE NEGATIVE (NEGATIVE); UROBILINOGEN,URINE 0.2 E.U./dL (0.2-1.0)
[2024-06-24 11:54] LABS: LEUKOCYTE ESTERASE,URINE NEGATIVE (NEGATIVE); MUCUS,URINE FEW /HPF; RBC,URINE 0-5 /HPF; SQUAMOUS EPITHELIAL CELLS,UR FEW /HPF; WBC,URINE 0-5 /HPF
[2024-06-24 12:03] LABS: A/G RATIO 0.7 (0.8-2.0); ALBUMIN 3.1 g/dL (3.4-5.0); ANION GAP 11.4 mmol/L (5.0-15.0); BILIRUBIN TOTAL 0.5 mg/dL (0.0-1.0); BUN/CREATININE RATIO 14.6 (6-25); C-REACTIVE PROTEIN 75.6 mg/L (<5.0); CALCIUM 9.1 mg/dL (8.5-10.1); CARBON DIOXIDE,CO2 29.5 mmol/L (21.0-32.0); CREATININE 0.82 mg/dL (0.55-1.02); EST CRCL DRUG DOSING (CG) 50.49 mL/min; POTASSIUM,K 3.9 mmol/L (3.5-5.1); PROTEIN TOTAL,TP 7.3 g/dL (6.4-8.2)
== END 2024-06-24 13:42 | disposition home or self-care (01) ==
LOC: LB.ED 10:50
DX: K57.32 Diverticulitis of large intestine without perforation or abscess without bleeding (principal); E78.00 Pure hypercholesterolemia, unspecified; J45.909 Unspecified asthma, uncomplicated; E11.9 Type 2 diabetes mellitus without complications; Z90.710 Acquired absence of both cervix and uterus; Z79.899 Other long term (current) drug therapy; Z79.84 Long term (current) use of oral hypoglycemic drugs; Z88.9 Allergy status to unspecified drugs, medicaments and biological substances; Z88.0 Allergy status to penicillin
CPT/HCPCS: 36415; 74176; 80053; 81001; 85027; 86140; 99284